=== PATIENT | male | born 1945 | race Caucasian/White ===

== ENCOUNTER 2019-04-26 06:10 | Day surgery (SDC) | payer MEDICARE, BC ==
[2019-04-26] MEDS ORDERED: Sodium Chloride 0.9% 10 ML Syringe FLUSH PRN (08:00)
[2019-04-26] MEDS ORDERED: Lactated Ringers 1,000 ML IV SCH (08:00)
[2019-04-26] MEDS ORDERED: fentaNYL 100 MCG/2 ML SDV ONE (08:18)
[2019-04-26] MEDS ORDERED: Propofol 200 MG/20 ML SDV ONE (08:18)
--- NOTE | 2019-04-26 10:02 | OR ---
PRE-OPERATIVE DIAGNOSIS: Dysphagia in the lower esophagus. This occurs maybe once a month with meat or chicken. POST-OPERATIVE DIAGNOSES: 1. Mild duodenitis. Cold biopsy x2 bites taken. 2. Small 2 to 3 cm sliding-type hiatal hernia with mild esophagitis. Cold biopsies taken from the gastroesophageal junction. 3. Antral biopsies taken for path and Helicobacter pylori. PROCEDURE: EGD with cold biopsy x3 sites. SURGEON: Zacarias Phillips M.D. ANESTHESIA: Monitored anesthesia care. DESCRIPTION OF PROCEDURE: Renato is a 73-year-old male, who was brought to the endoscope suite after discussion of risks and benefits (including but not limited to reaction to medication, bleeding, infection, aspiration, perforation). Informed consent was obtained for monitored anesthesia care and esophagogastroduodenoscopy along with possible biopsy and/or dilatation. Pre-procedure exam including oral cavity was unremarkable. IV, oxygen, and monitors were placed. The patient was placed in the left lateral position and sedation was administered. A bite block was placed gently and scope lightly lubricated and passed through the bite block and over the tongue. Hypopharynx and vocal cords were visualized and unremarkable. Scope was passed through the cricopharynx and into the esophagus. The scope was then passed through the distal esophagus and the GE junction was visualized and photographed. The GE junction was remarkable for a small 2 to 3 cm sliding-type hiatal hernia with mild esophagitis present. On the way out, cold biopsies x4 bites taken. The scope was advanced into the stomach and gastric ahmadi was suctioned. Pylorus was identified and intubated and then the scope was advanced to the third portion of the duodenum. The second and third portions of the duodenum revealed mild duodenitis. The duodenal bulb was visualized and revealed some [id number] duodenitis as well. The scope was brought back into the stomach, and pylorus and antrum were unremarkable except for maybe some minimal irritation. Cold biopsy x2 bites taken for path and H. pylori. The scope was then retroflexed to visualize the angularis, fundus, body, and cardia. These were unremarkable. The stomach was desufflated of air and then the scope was slowly withdrawn, and the esophagus was closely visualized during withdrawal all the way into the posterior pharynx. There was no evidence of any strictures or rings. The patient tolerated the procedure well and went to recovery in stable condition. The patient was monitored until at baseline status. Findings and discharge instructions were reviewed and the patient was discharged in good condition. COMPLICATIONS: None. TOTAL TIME: 11 minutes. ESTIMATED BLOOD LOSS: 1 to 2 mL. RECOMMENDATIONS/FOLLOW-UP: We will await results of path report and send out letter with results. I would like the patient to try going on omeprazole 20 mg daily to see if this can help with the esophagitis and in turn the intermittent dysphagia symptoms. I think certain foods may be irritating the lower esophagus and causing some spasm. If we can control the inflammation, symptoms, I think, will improve. If symptoms do not improve, we can always repeat EGD and dilate the area, but there seemed to be plenty of room present at the current time. I will have the patient hold his aspirin for 3 days to limit any chance of bleeding from biopsy sites. I would like to kindly thank Dr. Doss for this referral. DMB: 04/26/2019 09:12:27 MODL: 04/26/2019 09:57:45 /[id number]
== END 2019-04-26 10:05 | disposition home or self-care (01) ==
LOC: VM.SDS 06:10
PROVIDERS: ATTEND Family Medicine
DX: K20.9 Esophagitis, unspecified (principal); K29.50 Unspecified chronic gastritis without bleeding; K29.80 Duodenitis without bleeding; K44.9 Diaphragmatic hernia without obstruction or gangrene; K22.8 Other specified diseases of esophagus; K31.89 Other diseases of stomach and duodenum; I10 Essential (primary) hypertension; I25.119 Atherosclerotic heart disease of native coronary artery with unspecified angina pectoris; E11.9 Type 2 diabetes mellitus without complications; E78.5 Hyperlipidemia, unspecified; B35.1 Tinea unguium; G47.33 Obstructive sleep apnea (adult) (pediatric); H01.006 Unspecified blepharitis left eye, unspecified eyelid; H01.003 Unspecified blepharitis right eye, unspecified eyelid; N40.1 Benign prostatic hyperplasia with lower urinary tract symptoms; E66.9 Obesity, unspecified; Z68.33 Body mass index [BMI] 33.0-33.9, adult; Z88.1 Allergy status to other antibiotic agents; Z88.0 Allergy status to penicillin; Z88.8 Allergy status to other drugs, medicaments and biological substances; Z99.89 Dependence on other enabling machines and devices; Z79.4 Long term (current) use of insulin; Z79.82 Long term (current) use of aspirin; Z79.899 Other long term (current) drug therapy
CPT/HCPCS: 00731; 43239; 82962; 88305; 88342; J2704; J3010; J7120